=== PATIENT | male | born 1975 | race Two or more races ===

== ENCOUNTER 2024-05-20 20:16 | Inpatient (IN) | payer MEDICAID ==
[~2024-05-20] VITALS: Ht 182.9 cm; Wt 115.7 kg
[2024-05-20 19:50] VITALS: BP 125/79; PULSE 85; RESP 18; TEMP 36.2512
[2024-05-20] MEDS ORDERED: DEXTROSE 50% WATER 50ML SYRINGE IV PRN (21:15)
[2024-05-20] MEDS ORDERED: ONDANSETRON HCL 4MG/2ML INJ IV PRN (21:30)
[2024-05-20] MEDS ORDERED: LABETALOL 5MG/ML 4ML INJ IV PRN (21:30)
[2024-05-20] MEDS ORDERED: CLONIDINE 0.1MG TABLET PO PRN (21:45)
[2024-05-20] MEDS: BLOOD SUGAR DIAGNOSTIC STRIP TEST SCH (22:19)
[2024-05-20] MEDS: METRONIDAZOLE 500MG TABLET PO SCH (22:32)
[2024-05-20] MEDS: INSULIN LISPRO 100 UNITS/ML SUBCUT SCH (22:32)
[2024-05-20] MEDS: SODIUM CHLORIDE 0.9% 3ML FLUSH IVF SCH (22:37)
[2024-05-21 08:00] VITALS: BP 132/70; PULSE 67; RESP 19; TEMP 36.22512; O2SAT 97
[2024-05-21 08:40] LABS: CHLORIDE 97 mEq/L (98-107); POTASSIUM 4.6 mEq/L (3.5-5.1); SODIUM 131 mEq/L (136-145)
[2024-05-21 08:44] LABS: CALCIUM 9.6 mg/dL (8.7-10.4); CARBON DIOXIDE 26 mEq/L (21-32)
[2024-05-21 08:49] LABS: ALANINE AMINOTRANSFERASE 54 IU/L (10-49); GLUCOSE 232 mg/dL (70-105); UREA NITROGEN BLOOD 13 mg/dL (9-23)
[2024-05-21 08:50] LABS: ALBUMIN 4.3 g/dL (3.2-4.8)
[2024-05-21 08:51] LABS: ASPARTATE AMINOTRANSFERASE 63 IU/L (<34); BILIRUBIN TOTAL 0.4 mg/dL (0.1-1.0); PHOSPHORUS 3.8 mg/dL (2.5-4.9); PROTEIN TOTAL 7.6 g/dL (6.0-8.3)
[2024-05-21 09:04] LABS: BASOPHILS % 0.8 % (0.0-2.0); DIFFERENTIAL COMMENT 0; EOSINOPHILS % 2.6 % (0.0-5.0); HEMATOCRIT. 51.8 % (42.0-52.0); HEMOGLOBIN. 15.9 g/dL (14.0-18.0); LYMPHOCYTES % 21.3 % (20.0-50.0); MEAN CORPUSCULAR HEMOGLOBIN 22.5 pg (28.0-32.0); MEAN CORPUSCULAR HGB CONC 30.7 g/dL (31.0-37.0); MEAN CORPUSCULAR VOLUME 73.3 fL (80.0-94.0); MEAN PLATELET VOLUME 9.7 fl (7.4-10.4); MONOCYTES % 11.9 % (2.0-8.0); NEUTROPHILS % 63.4 % (40.0-76.0); PLATELET 261 x1000/uL (130-400); RED BLOOD CELL COUNT 7.06 mill/uL (4.7-6.1); RED CELL DISTRIBUTION WIDTH 15.4 % (11.6-14.6); WHITE BLOOD COUNT 11.8 x1000/uL (4.5-11.0)
[2024-05-21] MEDS: CLOPIDOGREL 75MG TABLET PO SCH (09:39)
[2024-05-21] MEDS: ASPIRIN 81MG TABLET PO SCH (09:40)
[2024-05-21] MEDS: AMLODIPINE 10MG TABLET PO SCH (09:40)
[2024-05-21] MEDS: INSULIN GLARGINE 100 UNITS/ML SUBCUT SCH (16:47)
[2024-05-21] MEDS: METFORMIN HCL 500MG TABLET PO SCH (16:50)
[2024-05-21] MEDS: CEFTRIAXONE 1GM/50ML 50 ML IV SCH (18:18)
[2024-05-21 20:00] VITALS: BP 127/81; PULSE 82; RESP 20; TEMP 36.50292; O2SAT 99
[2024-05-21] MEDS: ATORVASTATIN CALCIUM 40MG TABLET PO SCH (22:07)
[2024-05-22 05:15] LABS: CLARITY URINE CLEAR (CLEAR); COLOR URINE YELLOW (YELLOW); GLUCOSE URINE 2+ (NEGATIVE); KETONES URINE NEGATIVE (NEGATIVE); LEUKOCYTE ESTERASE URINE NEGATIVE (NEGATIVE); NITRITE URINE NEGATIVE (NEGATIVE); OCCULT BLOOD URINE NEGATIVE (NEGATIVE); PROTEIN URINE NEGATIVE (NEGATIVE); SPECIFIC GRAVITY URINE 1.014 (1.005-1.030); UROBILINOGEN URINE 0.2 E.U./dL (0.2-1.0)
[2024-05-22 05:30] LABS: CREATININE URINE RANDOM 70.4 mg/dL
[2024-05-22] MEDS: BISACODYL 5MG TABLET PO PRN (05:36)
[2024-05-22 06:39] LABS: BACTERIA URINE NONE SEEN; RBC URINE NONE SEEN /hpf (0-2); SQUAMOUS EPITHELIAL CELL URINE NONE SEEN /lpf (RARE/1+); WBC URINE NONE SEEN /hpf (0-2)
[2024-05-22 06:47] LABS: CHLORIDE 98 mEq/L (98-107); POTASSIUM 4.3 mEq/L (3.5-5.1); SODIUM 130 mEq/L (136-145)
[2024-05-22 06:48] LABS: CALCIUM 9.4 mg/dL (8.7-10.4); CARBON DIOXIDE 25 mEq/L (21-32)
[2024-05-22 06:53] LABS: GLUCOSE 306 mg/dL (70-105); IRON 89 ug/dL (65-175); UREA NITROGEN BLOOD 14 mg/dL (9-23)
[2024-05-22 06:55] LABS: TOTAL IRON BINDING CAPACITY 145 ug/dl (250-425)
[2024-05-22 06:56] LABS: THYROID STIMULATING HORMONE 1.23 uIU/mL (0.55-4.78)
[2024-05-22 06:59] LABS: BASOPHILS % 0.7 % (0.0-2.0); CORTISOL 8.8 ucg/dL; DIFFERENTIAL COMMENT 0; HEMATOCRIT. 51.2 % (42.0-52.0); LYMPHOCYTES % 19.3 % (20.0-50.0); MEAN CORPUSCULAR HEMOGLOBIN 22.9 pg (28.0-32.0); MEAN CORPUSCULAR HGB CONC 31.2 g/dL (31.0-37.0); MEAN CORPUSCULAR VOLUME 73.4 fL (80.0-94.0); MEAN PLATELET VOLUME 9.4 fl (7.4-10.4); MONOCYTES % 11.3 % (2.0-8.0); NEUTROPHILS % 66.7 % (40.0-76.0); PLATELET 244 x1000/uL (130-400); RED BLOOD CELL COUNT 6.98 mill/uL (4.7-6.1); RED CELL DISTRIBUTION WIDTH 15.1 % (11.6-14.6); WHITE BLOOD COUNT 11.9 x1000/uL (4.5-11.0)
[2024-05-22 07:03] LABS: FERRITIN 235 ng/mL (22-322)
[2024-05-22 07:04] LABS: VITAMIN B12 SERUM 786 pg/mL (211-911)
[2024-05-22 07:54] LABS: FOLIC ACID (FOLATE) SERUM > 20.00 ng/mL (>5.38)
[2024-05-22 08:00] VITALS: BP 108/79; PULSE 102; RESP 20; TEMP 36.50292; O2SAT 100
[2024-05-22] MEDS: INSULIN LISPRO 100 UNITS/ML SUBCUT SCH ×3 (09:18→13:39)
[2024-05-22] MEDS: INSULIN GLARGINE 100 UNITS/ML SUBCUT SCH (18:46)
[2024-05-22 20:00] VITALS: BP 107/72; PULSE 97; RESP 20; TEMP 36.61404; O2SAT 100
[2024-05-23 08:00] VITALS: BP 136/85; PULSE 70; RESP 18; TEMP 36.28068; O2SAT 99
[2024-05-23 20:00] VITALS: BP 118/85; PULSE 89; RESP 19; TEMP 36.3918; O2SAT 100
[2024-05-23] MEDS: ACETAMINOPHEN 325MG TABLET PO PRN (22:33)
[2024-05-24 08:00] VITALS: BP 118/77; PULSE 92; RESP 20; TEMP 36.28068; O2SAT 98
[2024-05-24 08:20] LABS: CHLORIDE 98 mEq/L (98-107); POTASSIUM 4.6 mEq/L (3.5-5.1); SODIUM 133 mEq/L (136-145)
[2024-05-24 08:21] LABS: BASOPHILS % 0.9 % (0.0-2.0); CARBON DIOXIDE 29 mEq/L (21-32); DIFFERENTIAL COMMENT 0; EOSINOPHILS % 2.1 % (0.0-5.0); HEMATOCRIT. 53.3 % (42.0-52.0); HEMOGLOBIN. 16.4 g/dL (14.0-18.0); LYMPHOCYTES % 23.1 % (20.0-50.0); MEAN CORPUSCULAR HEMOGLOBIN 22.6 pg (28.0-32.0); MEAN CORPUSCULAR HGB CONC 30.8 g/dL (31.0-37.0); MEAN CORPUSCULAR VOLUME 73.5 fL (80.0-94.0); MEAN PLATELET VOLUME 9.6 fl (7.4-10.4); MONOCYTES % 11.7 % (2.0-8.0); NEUTROPHILS % 62.2 % (40.0-76.0); PLATELET 261 x1000/uL (130-400); RED BLOOD CELL COUNT 7.25 mill/uL (4.7-6.1); RED CELL DISTRIBUTION WIDTH 15.2 % (11.6-14.6); WHITE BLOOD COUNT 11.4 x1000/uL (4.5-11.0)
[2024-05-24 08:22] LABS: CALCIUM 9.7 mg/dL (8.7-10.4)
[2024-05-24 08:26] LABS: CREATININE 1.2 mg/dL (0.6-1.3); GLUCOSE 203 mg/dL (70-105); UREA NITROGEN BLOOD 18 mg/dL (9-23)
[2024-05-24 20:00] VITALS: BP 130/77; PULSE 92; RESP 18; TEMP 36.6696; O2SAT 98
[2024-05-25 08:00] VITALS: BP 126/78; PULSE 66; RESP 20; TEMP 36.05844; O2SAT 100
[2024-05-25] MEDS: INSULIN GLARGINE 100 UNITS/ML SUBCUT SCH (18:15)
[2024-05-25 20:00] VITALS: BP 138/64; PULSE 92; RESP 19; TEMP 36.114; O2SAT 98
[2024-05-26 08:00] VITALS: BP 132/81; PULSE 89; RESP 20; TEMP 36.72516; O2SAT 99
[2024-05-26 20:00] VITALS: BP 139/85; PULSE 88; RESP 18; TEMP 36.28068; O2SAT 100
== END 2024-05-27 00:25 | disposition left against medical advice (07) | DRG 45 ==
PROVIDERS: ADMIT Psychiatry & Neurology Neurology; ATTEND Internal Medicine
DX: I63.9 Cerebral infarction, unspecified (principal); E87.1 Hypo-osmolality and hyponatremia; I69.351 Hemiplegia and hemiparesis following cerebral infarction affecting right dominant side; B35.1 Tinea unguium; D75.1 Secondary polycythemia; D72.829 Elevated white blood cell count, unspecified; E11.65 Type 2 diabetes mellitus with hyperglycemia; K52.9 Noninfective gastroenteritis and colitis, unspecified; F17.210 Nicotine dependence, cigarettes, uncomplicated; F15.90 Other stimulant use, unspecified, uncomplicated; Z53.21 Procedure and treatment not carried out due to patient leaving prior to being seen by health care provider; E78.5 Hyperlipidemia, unspecified; I10 Essential (primary) hypertension; E78.00 Pure hypercholesterolemia, unspecified; G43.909 Migraine, unspecified, not intractable, without status migrainosus; E66.01 Morbid (severe) obesity due to excess calories; Z68.34 Body mass index [BMI] 34.0-34.9, adult; Z91.148 Patient's other noncompliance with medication regimen for other reason; Z91.81 History of falling
CPT/HCPCS: 36415; 80048; 80053; 81003; 82024; 82533; 82570; 82607; 82668; 82728; 82746; 82962; 83036; 83540; 83550; 83735; 83930; 83935; 84100; 84300; 84439; 84443; 85025; 92523; 92610; 93970; 97110; 97112; 97116; 97162; 97166; 97530; 97535; J0696; J1815

== ENCOUNTER 2025-02-02 17:53 | Emergency (ER) | payer MEDICAID ==
[~2025-02-02] VITALS: Ht 182.9 cm; Wt 109.0 kg
[2025-02-02 17:55] VITALS: BP 137/87; PULSE 90; RESP 16; TEMP 36.1; O2SAT 90
== END 2025-02-02 19:18 | disposition left against medical advice (07) ==
LOC: ER 17:53
DX: T83.098A Other mechanical complication of other urinary catheter, initial encounter (principal); E11.9 Type 2 diabetes mellitus without complications; I10 Essential (primary) hypertension; Z86.73 Personal history of transient ischemic attack (TIA), and cerebral infarction without residual deficits; X58.XXXA Exposure to other specified factors, initial encounter
CPT/HCPCS: 51702; 99283; 99284

== ENCOUNTER 2025-02-28 13:15 | Emergency (ER) | payer MEDICAID ==
[~2025-02-28] VITALS: Ht 182.9 cm; Wt 95.0 kg
[2025-02-28 13:18] VITALS: O2SAT 98
[2025-02-28 14:22] LABS: BASOPHILS % 0.7 % (0.0-2.0); EOSINOPHILS % 1.8 % (0.0-5.0); HEMATOCRIT. 49.4 % (42.0-52.0); HEMOGLOBIN. 15.5 g/dL (14.0-18.0); LYMPHOCYTES % 16.2 % (20.0-50.0); MEAN PLATELET VOLUME 8.7 fl (7.4-10.4); MONOCYTES % 10.4 % (2.0-8.0); NEUTROPHILS % 70.9 % (40.0-76.0); PLATELET 298 x1000/uL (130-400); RED BLOOD CELL COUNT 6.96 mill/uL (4.7-6.1); RED CELL DISTRIBUTION WIDTH 15.3 % (11.6-14.6)
[2025-02-28 14:36] LABS: CREATININE 1.0 mg/dL (0.6-1.3)
[2025-02-28 14:37] LABS: ETHANOL BLOOD < 10 mg/dL (<10); TROPONIN I HIGH SENSITIVITY 7 ng/L (3.0-53); UREA NITROGEN BLOOD 9 mg/dL (9-23)
[2025-02-28 14:38] LABS: ASPARTATE AMINOTRANSFERASE 57 IU/L (<34)
[2025-02-28 14:39] LABS: BILIRUBIN DIRECT < 0.1 mg/dL (<=3.0); BILIRUBIN TOTAL 0.5 mg/dL (0.1-1.0); PROTEIN TOTAL 8.2 g/dL (6.0-8.3)
[2025-02-28] MEDS: ONDANSETRON HCL 4MG/2ML INJ IV STA (14:40)
[2025-02-28] MEDS: SODIUM CHLORIDE 0.9% 1,000 ML IV ONE (14:41)
[2025-02-28 16:27] LABS: INR 1.0
[2025-02-28 16:33] LABS: TROPONIN I HIGH SENSITIVITY 7 ng/L (3.0-53)
[2025-02-28 19:31] VITALS: BP 147/96; PULSE 98; RESP 16; TEMP 36.8; O2SAT 100
== END 2025-02-28 20:01 | disposition home or self-care (01) ==
LOC: ER 13:15
DX: R11.2 Nausea with vomiting, unspecified (principal); R10.9 Unspecified abdominal pain; E11.9 Type 2 diabetes mellitus without complications; I10 Essential (primary) hypertension; I25.2 Old myocardial infarction; Z79.85 Long-term (current) use of injectable non-insulin antidiabetic drugs; Z79.899 Other long term (current) drug therapy
CPT/HCPCS: 80076; 80048; 80307; 80329; 80320; 83690; 85025; 85610; 84484; 36415; 93005; 96361; 96374; 99284; J2405; J7030; Z7610; 99292; G0480